=== PATIENT | male | born 1975 | race Hispanic/Latino ===

== ENCOUNTER 2018-04-08 06:26 | Emergency (ER) | payer OTHER ==
[2018-04-08 06:42] VITALS: BP 187/110
[2018-04-08] MEDS ORDERED: CATAPRES PO ONE (06:43)
[2018-04-08] MEDS ORDERED: FIORICET PO ONE (07:39)
--- NOTE | 2018-04-08 07:40 | Emergency Department Report ---
ED Laceration HPI - HPI Chief Complaint: Wound/Laceration Stated Complaint: LACERATION TO HEAD Time Seen by Provider: 04/08/18 07:27 Occurred When: Today Severity: moderate Laceration Symptoms: Yes Pain, No Foreign Body Sensation, No Numbness, No Weakness Other History: Patient is a 42-year-old healthy looking male with a history of hypertension uncontrolled who presents to ED complaining of laceration to forehead that he occurred today this morning. Patient states he was taking the trash out accidentally tripped on a pothole which leaned him forward and hit his head on the garbage pain. Patient states His pain was plastic material. Patient denies loss of consciousness after incident, nausea vomiting, dizziness, headache or blurred vision. ED Review of Systems ROS: Stated complaint: LACERATION TO HEAD Other details as noted in HPI Comment: All other systems reviewed and negative ED Past Medical Hx - Past Medical History Hx Hypertension: Yes - Surgical History Past Surgical History?: No - Social History Smoking Status: Never Smoker Substance Use Type: None - Medications Home Medications: Home Medications Medication Instructions Recorded Confirmed Last Taken Type Acetaminophen/Codeine [Tylenol 1 tab PO Q6H #12 tab 04/08/18 Unknown Rx /Codeine # 3 tab] Ibuprofen [Motrin] 800 mg PO Q8HR #30 tablet 04/08/18 Unknown Rx cephALEXin [Keflex] 500 mg PO Q12HR #10 cap 04/08/18 Unknown Rx Laceration Physical Exam - Exam General: Vital signs noted. No distress. Alert and acting appropriately. Wound Length (cm): 3 Laceration Location: Head Full Body Front + Back: 1 - 3-4 cm horizontal lac noted at frontal scalp region Laceration Exam: Yes Normal Distal CMS, No Foreign Body, No Exposed Tendon, Vessel, or Nerve, No Tendon Injury ED Course Vital Signs 04/08/18 04/08/18 06:34 06:47 Temperature 97.6 F Pulse Rate 105 H 105 H Respiratory 16 Rate Blood Pressure 187/110 187/110 O2 Sat by Pulse 98 Oximetry ED Medical Decision Making - Medical Decision Making 42-year-old male presents with Laceration to the frontal scalp. Patient had no neurologic deficits therefore no CT was ordered. he was able to speak in clear sentences, The 3cm laceration wound was prepped and draped in sterile fashion. Anesthesia was achieved with 4mL of 1% lidocaine. The wound was irrigated with 200cc NS and explored. There were no foreign bodies The wound was reapproximated in 1 layer of 14 serenity There was excellent reapproximation of the wound edges. The patient tolerated the procedure without complication Discussed follow-up with palpation 7-10 days for staple removal Critical care attestation.: If time is entered above; I have spent that time in minutes in the direct care of this critically ill patient, excluding procedure time. ED Disposition Clinical Impression: Laceration of scalp Disposition: [id number] TO HOME OR SELFCARE Is pt being admited?: No Does the pt Need Aspirin: No Condition: Stable Instructions: Laceration (ED), Staple Care (ED) Additional Instructions: Make sure to follow up with the primary care physician as discussed. Take all your medications as you've been prescribed. If you have any worsening symptoms or develop new symptoms please return to ED immediately. Prescriptions: Acetaminophen/Codeine [Tylenol /Codeine # 3 tab] 1 tab PO Q6H #12 tab cephALEXin [Keflex] 500 mg PO Q12HR #10 cap Ibuprofen [Motrin] 800 mg PO Q8HR #30 tablet Referrals: MELANIE EMERSON MD [Referring] - 3-5 Days [facility] [Outside] - 3-5 Days Forms: Work/School Release Form(ED)
[2018-04-08] MEDS ORDERED: XYLOCAINE 1% 20 mL INFILTRATI NR (07:45)
[2018-04-08] MEDS ORDERED: XYLOCAINE 1% MPF 5 mL ONE (08:41)
== END 2018-04-08 09:14 | disposition home or self-care (01) ==
LOC: ED 06:26
DX: S01.01XA Laceration without foreign body of scalp, initial encounter (principal); I10 Essential (primary) hypertension; W18.41XA Slipping, tripping and stumbling without falling due to stepping on object, initial encounter; Y93.89 Activity, other specified; Y92.89 Other specified places as the place of occurrence of the external cause; Y99.8 Other external cause status
CPT/HCPCS: 99282